=== PATIENT | male | born 1985 | race Caucasian/White ===

== ENCOUNTER 2023-08-24 10:59 | Emergency (ER) | payer BC, SELFPAY ==
--- NOTE | ~2023-08-24 | XR_ITS ---
EXAMINATION: XR hand RT min 3V DATE: 08/24/2023 12:05 INDICATION: Wound at the base of the right third digit TECHNIQUE: Posteroanterior, oblique and lateral views of the right hand were obtained. COMPARISON: None. FINDINGS: Alignment is normal. No fracture. Joint spaces are normal. Soft tissue swelling dorsal to the head of the third and fourth metacarpals. No evident cortical erosions, periosteal reaction, soft tissue gas or radiopaque foreign bodies. IMPRESSION: 1. No osseous abnormality or radiopaque foreign body. Reviewed, dictated and finalized at location A. D SUPPORT OFFICER
--- NOTE | ~2023-08-24 | XR_ITS ---
EXAMINATION: XR wrist LT min 3V DATE: 08/24/2023 12:06 INDICATION: Diffuse left wrist pain TECHNIQUE: Posteroanterior, ulnar deviation, oblique, and lateral views of the left wrist were obtain ed. COMPARISON: none FINDINGS: 3 mm ulnar minus variance. Bone alignment is otherwise normal. No fracture. Joint spaces are normal. Soft tissues are unremarkable. IMPRESSION: 1. 3 mm ulnar minus variance. Otherwise normal left wrist radiographs. Reviewed, dictated and finalized at location A. ER SERVICE SUPERVISOR
[2023-08-24 11:31] VITALS: BP 122/79; PULSE 67; RESP 16; TEMP 36.6; O2SAT 99
--- NOTE | 2023-08-24 12:14 | ED.UPPEXIN ---
HPI - Extremity Injury (Upper) General Chief Complaint: Extremity Injury, Upper Stated Complaint: clarissa nail injury right hand,difficulty mvg hand Time Seen by Provider: 08/24/23 12:14 Source: patient Mode of arrival: ambulatory Limitations: no limitations History of Present Illness HPI narrative: 37-year-old male presents with multiple complaints. complaining of left wrist pain for 1 Week. States that drill slipped a week ago causing his left wrist to twist. Has had pain with pronation and supination. No significant swelling or deformity noted. Reports redness and swelling to right hand since yesterday. States that he punctured skin with resting nail. No concern for foreign body. Afebrile. Also reports cough for 2 days. Reports congestion in chest. Not taking any [id number] medications to treat his symptoms. States that he is supposed to travel for work this week and is not supposed to travel if he is sick. Requesting COVID testing. All systems reviewed and negative except as noted above. Related Data Allergies Allergy/AdvReac Type Severity Reaction Status Date / Time No Known Allergies Allergy Verified 08/24/23 12:23 Review of Systems Review of Systems: CONSTITUTIONAL: Denies fever, chills, or sweats. reports fatigue. EYES: Denies visual changes, redness, or discharge. ENT: Denies rhinorrhea, congestion, sore throat, or otalgia. CARDIOVASCULAR: Denies chest pain, palpitations, or edema. RESPIRATORY: Reports cough, chest congestion. Denies dyspnea. GASTROINTESTINAL: Denies abdominal pain, nausea, vomiting, or diarrhea. GENITOURINARY: Denies dysuria or hematuria. SKIN: Denies rash or itching. Reports redness and swelling to dorsal aspect of right hand. MUSCULOSKELETAL: Denies back pain, joint pain, or myalgia. Reports left wrist pain. NEUROLOGIC: Denies headache, numbness, or weakness. PSYCHIATRIC: Denies anxiety or depression. All other systems reviewed are negative, except as documented in HPI. PMFSH Comments At time of signature, agree with nursing past medical, surgical, social and family history. There is no relevant family history pertinent to the presenting complaint. Exam Narrative: GENERAL: This is a well-nourished, well-developed patient, in no apparent distress. HEAD: normocephalic, atraumatic. EYES: PERRL. Sclera clear/white. Vision is grossly intact. EARS: External ears normal, auditory canals clear and without drainage, TMs normal without perforation. Hearing grossly intact. NOSE: External nose normal with no obvious nasal discharge, nares without redness, no rhinorrhea. THROAT: Mucous membranes moist, posterior pharynx clear. NECK: Neck supple, non-tender without lymphadenopathy, masses or thyromegaly. CARDIOVASCULAR: Regular rate and rhythm without murmurs, gallops, or rubs. RESPIRATORY: Clear to auscultation. Breath sounds equal bilaterally. No wheezes, rales, or rhonchi. SKIN: warm, Dry, intact with no suspicious lesions or rash, good texture and turgor. Erythema and swelling with tenderness on palpation to dorsal aspect of right hand. Approximately 3 x 4 cm with scabbed puncture wound to center. No fluctuance concerning for abscess. NEURO: awake, alert, and oriented to person, place and time. There were no obvious focal neurologic abnormalities. EXTREMITIES: No joint tenderness, effusion, or edema noted. Tenderness on lateral aspect left wrist, ulnar aspect. No deformity or swelling noted. Patient reports pain and decreased range of motion with pronation and supination. No instability or weakness noted. Course Course Level of Care: Express Care Visit Vital Signs Vital signs: Vital Signs Temperature 36.6 C 08/24/23 11:31 Pulse Rate 67 08/24/23 11:31 Respiratory Rate 16 08/24/23 11:31 Blood Pressure 122/79 08/24/23 11:31 Pulse Oximetry 99 08/24/23 11:31 Oxygen Delivery Room Air 08/24/23 11:31 Temperature 36.6 C 08/24/23 11:31
[2023-08-24] MEDS: TETANUS,DIPHTHERIA,AC PERTUSSIS ADULT (0.5 ML) BOOSTRIX IM (12:41)
== END 2023-08-24 12:53 | disposition home or self-care (01) ==
PROVIDERS: Emergency Provider Nurse Practitioner Family; PCP Emergency Medicine
DX: L03.113 Cellulitis of right upper limb (principal); S63.502A Unspecified sprain of left wrist, initial encounter; X50.9XXA Other and unspecified overexertion or strenuous movements or postures, initial encounter; J06.9 Acute upper respiratory infection, unspecified; R05.9 Cough, unspecified; Z20.822 Contact with and (suspected) exposure to COVID-19; Z23 Encounter for immunization
CPT/HCPCS: 73110; 73130; 87426; 90471; 90715; 99203; C9803; G0463

== ENCOUNTER 2025-03-14 15:21 | Outpatient (CLI) | payer BC, SELFPAY ==
--- NOTE | ~2025-03-14 | MR_ITS ---
EXAMINATION: MR shoulder LT wo con DATE: 03/14/2025 15:54 INDICATION: Left shoulder pain TECHNIQUE: Magnetic resonance imaging (MRI) of the left shoulder was performed without intravenous co ntrast. Sequences included axial PD-weighted FS FSE, coronal oblique PD-weighted FS FSE, coronal obli que T2-weighted FS FSE, sagittal PD-weighted FS FSE, and sagittal T1-weighted SE. COMPARISON: None. FINDINGS: Coracoacromial arch: The acromion undersurface is curved in morphology (type II). The coracoacromial ligament is normal. M ild acromioclavicular osteoarthritis with subarticular cystic changes at the lateral head of the clav icle. Rotator cuff: Mild subscapularis and supraspinatus tendinopathy without discrete tear. The more posterior infraspin atus and teres minor tendons are normal. Normal rotator cuff muscle bulk and signal. Biceps tendon, glenoid labrum and glenohumeral cartilage: Long head of the biceps tendon is normal. Glenoid labrum is normal. Glenohumeral cartilage is normal. Fluid: Physiologic amount of fluid in the glenohumeral joint and biceps tendon sheath. No loose osteochondr al bodies. No abnormal fluid in the subacromial/subdeltoid bursa to suggest bursitis. Bones: Normal marrow signal with no edema, fracture or pathologic marrow replacing process. IMPRESSION: 1. Mild supraspinatus and subscapularis tendinopathy without tear. 2. Mild acromioclavicular osteoarthritis. Reviewed, dictated and finalized at location A.
== END 2025-03-14 15:22 | disposition home or self-care (01) ==
LOC: MICIMG 15:21
PROVIDERS: PCP Emergency Medicine; Visit Provider Emergency Medicine
DX: M75.82 Other shoulder lesions, left shoulder (principal); M19.012 Primary osteoarthritis, left shoulder
CPT/HCPCS: 73221